=== PATIENT | male | born 1955 | race Caucasian/White ===

== ENCOUNTER 2023-07-02 17:16 | Emergency (ER) | payer MEDICAID ==
--- NOTE | 2023-07-02 18:49 | Ultrasound Report ---
PROCEDURE: Duplex Ext Veins Right INDICATIONS: R leg pain, swelling TECHNIQUE: Real-time imaging, as well as color and pulse Doppler interrogation, were performed of the lower extr emity deep veins from the inguinal ligament to the popliteal fossa. Attempted visualization of the ca lf veins was performed. COMPARISON: None. FINDINGS: The deep veins are normally compressible, and free of intraluminal thrombus. Color and pu lse Doppler demonstrate normal phasic intraluminal flow. There is normal augmentation response to di stal compression maneuver. IMPRESSION: No deep venous thrombosis of the visualized lower extremity. Reviewed by: Roger Caldwell MD on 07/02/2023 6:48 PM [facility] Approved by: Roger Caldwell MD on 07/02/2023 6:48 PM PST Station ID: [id number]
--- NOTE | 2023-07-02 19:53 | ED Physician Documentation ---
History of Present Illness - Stated complaint Stated Complaint: RT LEG PX - Chief complaint Chief Complaint: Ext Problem - Additonal information Additional information: 67-year-old male reports that he apparently had fallen about a month ago and some sort of being fell onto his right upper thigh. 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 He has no shortness of breath no chest pain no nausea or vomiting. PD PAST MEDICAL HISTORY - Past Medical History Past Medical History: Yes Other Past Medical History: "blood clots" - Present Medications Home Medications: Ambulatory Orders Medication Instructions Recorded Confirmed Tamsulosin HCl [Flomax] 0.4 mg PO QPM 07/02/23 07/02/23 lisinopriL [Lisinopril] 40 mg PO DAILY 07/02/23 07/02/23 - Allergies Allergies/Adverse Reactions: Allergies Allergy/AdvReac Type Severity Reaction Status Date / Time antibiotic Allergy Anaphylaxis Uncoded 07/02/23 17:50 - Social History Does the pt smoke?: No Smoking Status: Never smoker PD ED PE NORMAL - Vitals Vital signs reviewed: Yes - General General: Alert and oriented X 3, No acute distress, Well developed/nourished - Cardiac Cardiac: RRR, No murmur, No gallop, Strong equal pulses - Respiratory Respiratory: No respiratory distress, Clear bilaterally - Extremities Extremities: Other - Free text exam Free text exam: When asked the patient to evaluate his right lower extremity and the hematoma that he is complaining of patient says that he does not feel like it is warranted at this time after he was told that he does not have a DVT and he has longjohns on it does not want me to further evaluate his right lower extremity including his right thigh hematoma that he presented to the emergency department for. Results - Vitals Vitals: Vital Signs - 24 hr 07/02/23 07/02/23 07/02/23 17:48 17:50 20:00 Temperature 36.3 C L 37.1 C Heart Rate 50 L 63 54 L Respiratory 18 16 16 Rate Blood Pressure 159/83 H 160/85 H 154/90 H O2 Saturation 98 96 94 Oxygen O2 Source Room air - Rads (name of study) Right lower extremity ultrasound Relevant Findings:: Final report received, EMP independent interpretation of test, Other (No DVT of the right lower extremity) PD Medical Decision Making - ED course ED course: 67-year-old male presents emergency department for right lower extremity pain and swelling. His original heart concern was DVT. Venous duplex was complete of the right lower extremity there was no DVT visualized on exam. When I went to evaluate the patient and inform him that there was no DVT I offered to do a physical exam to look at his right thigh hematoma but patient said that with his longjohns on it was too hard to get all of his clothes off and he did not like it is warranted now that he knows he does not have a DVT. I informed the patient that this is infected hematoma how to manage the signs and symptoms at home and told to follow-up with his primary care provider. He was given ER return precautions Departure - Departure Disposition: 01 Home, Self Care Clinical Impression: Hematoma of thigh Qualifiers: Encounter type: initial encounter Laterality: right Qualified Code(s): S70.11XA - Contusion of right thigh, initial encounter Instructions: ED Hematoma Comments: We have completed an ultrasound of your right lower extremity and there is not appear to be a DVT. As we discussed going home you can apply heat to your right side and massage out the hematoma that you have from your fall. I sent back to emergency department for having any shortness of breath or calf pain or any new concerning symptoms. Forms: PCP List Discharge Date/Time: 07/02/23 20:00
[2023-07-02 20:06] VITALS: BP 154/90; O2SAT 94
== END 2023-07-02 20:00 | disposition home or self-care (01) ==
LOC: ED 17:16
DX: S70.11XA Contusion of right thigh, initial encounter (principal); W19.XXXA Unspecified fall, initial encounter; Z79.899 Other long term (current) drug therapy; Z86.718 Personal history of other venous thrombosis and embolism
CPT/HCPCS: 99283; 99284